=== PATIENT | male | born 1965 | race Caucasian/White ===

== ENCOUNTER 2016-09-10 13:57 | Inpatient (IN) | payer OTHER ==
--- NOTE | ~2016-09-10 | HP ---
Unit #: [id number] #: [id number] Patient: TAI SULTANA [id number] [place] [address] [id number] I MR#: [id number] NAME: TAI SULTANA ROOM: 32 Age: 51 Sex: M Admission Date: 09/10/2016 : 1965 Attending Physician: Jaya Rey M.D. Admitting Physician: Jaya Rey M.D. Primary Care Physician: Primary Care Physician No HISTORY AND PHYSICAL HISTORY OF PRESENT ILLNESS Tai is a 51 year old admitted to [address] [place] [address] with depression and verbalizing wanting to hurt himself. PAST MEDICAL HISTORY 1. Obesity. 2. High blood pressure. 3. Diabetes mellitus. 4. Hyperlipidemia. 5. Coronary artery disease. PAST SURGICAL HISTORY 1. Low back x3. 2. Cholecystectomy. 3. Appendectomy. 4. T and A. 5. Right inguinal hernia repair. 6. Left knee. ALLERGIES Sulfa, Imdur, Haldol, lithium, Reglan. SOCIAL HISTORY He does not smoke. Drinks alcohol on occasion and denies illicit drug use. FAMILY HISTORY Medically noncontributory. REVIEW OF SYSTEMS CONSTITUTIONAL: No fever or chills. HEENT: Denies any sore throat, ear pain or runny nose. CARDIOVASCULAR: Denies chest pain, irregular heart rhythm or palpitations. CHEST: Denies shortness of breath or cough. No hemoptysis. GASTROINTESTINAL: Denies nausea, vomiting, diarrhea or chronic constipation. ENDOCRINE: Denies history of increased thirst or urination. No recent significant weight loss or gain. GENITOURINARY: Denies dysuria, frequency, or hematuria. SKIN: Denies any rashes. HEMATOLOGIC: Denies history of increased bleeding or bruising. MUSCULOSKELETAL: Denies any hot, swollen joints. No generalized muscle pain. NEUROLOGIC: Denies problems with vision or speech. No frequent, severe Unit #: [id number] #: [id number] Patient: TAI SULTANA headaches. No numbness, tingling or weakness in any extremities. Denies loss of bladder or bowel control. CURRENT MEDICATIONS 1. Invega 9 mg q.h.s. 2. Melatonin 6 mg q.h.s. 3. Lipitor 80 mg q.h.s. 4. Lexapro 20 mg q.h.s. 5. Seroquel XR 300 mg q.h.s. 6. Protonix 40 mg b.i.d. 7. Lopressor 50 mg b.i.d. 8. Milk of Magnesia p.r.n. 9. Maalox p.r.n. 10. Tylenol p.r.n. 11. Ferrous gluconate 324 mg daily. 12. Nitroglycerin sublingually p.r.n. 13. Glucophage 500 mg b.i.d. 14. Aspirin 81 mg daily. 15. Claritin 10 mg daily. 16. Norvasc 5 mg daily. 17. Zestril 20 mg daily. PHYSICAL EXAMINATION GENERAL: Alert, obese, in no apparent distress. VITAL SIGNS: Blood pressure 136/82, heart rate 86, respirations 16, temperature 98.6. WEIGHT: 275. HEIGHT: 5 feet 11 inches. SKIN: Warm and dry without rash or lesion. HEENT: Normocephalic. TMs not viewed. Oral and nasal passages clear. Conjunctivae clear. PERRLA. EOMs intact. NECK: Supple without lymphadenopathy or thyromegaly. HEART: Regular rate and rhythm without murmur. LUNGS: Clear. ABDOMEN: Soft, nontender. : Not done. EXTREMITIES: No evidence of cyanosis, clubbing or edema. Moves all without focal deficit. NEUROLOGICAL: Grossly within normal limits. Cranial Nerves: II: Visual trujillo are intact. III, IV AND : Extraocular movements are intact. Pupils are equal, round and reactive to light. V: Facial sensation is grossly normal. VII: Facial movements and expression are normal. VIII: Auditory acuity grossly intact. IX, X: Uvula is midline. Phonation is normal. XI: Patient shrugs shoulders and turns head normally. XII: Tongue protrudes in the midline. Sensory and Motor Function: Sensory and motor sensation is grossly normal. Motor: moves all extremities well. Coordination: Gait is normal. Deep Tendon Reflexes: Intact. IMPRESSION Psychiatric admission. RECOMMENDATIONS PSYCHIATRIC: Per psychiatrist. MEDICAL: See no contraindications to participate in facility's activities. Unit #: [id number] #: [id number] Patient: TAI SULTANA MEDICAL PROGNOSIS Good. MEDICAL CONDITION Stable. Dictated by... Sandy Garcia P.A.-C. for Ro Salgado/gretchen TD: 09/11/2016 17:32 JOB #: [id number] HISTORY AND PHYSICAL Page 1 of 1 X Sandy Garcia HISTORY AND PHYSICAL
--- NOTE | ~2016-09-10 | DS ---
Unit #: [id number] #: [id number] Patient: EMELI SULTANA [id number] [place] [address] [id number] I MR#: [id number] NAME: EMELI SULTANA ROOM: [facility] Age: 51 Sex: M Admission Date: 09/10/2016 : 1965 Discharge Date: 09/17/2016 Attending Physician: Jaya Rey M.D. Primary Care Physician: Primary Care Physician No DISCHARGE SUMMARY REASON FOR ADMISSION The patient is a 51-year-old white male, admitted with worsening symptoms of psychosis and command hallucinations. HOSPITAL COURSE The patient was admitted to the [address] [place] [address] unit and continued on previously prescribed medications. The patient's dose of Invega was gradually increased from 6 to 12 mg at h.s. and the patient tolerated the increase with no extrapyramidal symptoms or other complaint. With the increased dose of Invega to 12 mg, the patient reported reduction in command hallucinations and was much brighter when seen by this physician on 09/16/2016. At that point, he requested discharge from the hospital, it was so ordered. The patient will be given a supply of p.r.n. Symmetrel to take should he develop any extrapyramidal symptoms with the increased dose of Invega as he is fearful could happen. FINAL DIAGNOSES Schizoaffective disorder, diabetes mellitus, hypertension, dyslipidemia, coronary artery disease, gastroesophageal reflux disease, iron-deficiency anemia, environmental allergies. DISPOSITION ON DISCHARGE The patient discharged on following medications; Symmetrel 100 mg b.i.d. p.r.n. stiffness, haloperidol 12 mg at bedtime for psychosis, Flexeril 10 mg t.i.d. for muscle relaxation, Motrin 600 mg q.6 hours p.r.n. pain, Aristocort 0.1% cream apply to affected areas b.i.d. for rash, Ambien 5 mg at h.s. p.r.n. insomnia, aspirin 81 mg daily for anticoagulation, Claritin 10 mg daily for environmental allergies, Fergon 324 mg t.i.d. for iron supplementation, Protonix 40 mg daily for GERD, Norvasc 5 mg once daily for hypertension, Nitrostat 0.4 mg p.r.n. chest pain, Lipitor 80 mg at bedtime for dyslipidemia, Zestril 20 mg daily for hypertension, Lopressor 50 mg b.i.d. for hypertension, Glucophage 500 mg b.i.d. before meals for diabetic management, Lexapro 20 mg daily for depression, Seroquel XR 300 mg at bedtime for mood stabilization. Justification for 2 antipsychotics, the patient has been stabilized as an outpatient through [facility] in [place], [place] on 2 antipsychotic medications and these were continued with upper titration of Invega being the only therapeutic change. FOLLOWUP The patient will follow up through the auspices of [facility] in the [place], [place] area. PROGNOSIS Unit #: [id number] #: [id number] Patient: EMELI SULTANA His prognosis is considered good. Dictated by... Jaya Rey M.D. VIMAL/jung TD: 09/16/2016 23:00 JOB #: [id number] DISCHARGE SUMMARY Page 1 of 1 X Jaya Rey MD X DISCHARGE SUMMARY
--- NOTE | ~2016-09-10 | PN ---
Unit #: [id number] #: [id number] Patient: EMELI SULTANA [id number] [facility] [address] [place] [address] [id number] I MR#: [id number] NAME: EMELI SULTANA ROOM: 32 Age: 51 Sex: M Admission Date: 09/10/2016 : 1965 Attending Physician: Jaya Rey M.D. Admitting Physician: Jaya Rey M.D. Primary Care Physician: Primary Care Physician Nighat GARVIN PROGRESS NOTES DATE 09/15/2016 DISCUSSION The patient continues to complain of command auditory hallucinations which are instructing him to take an overdose of pills. He is agreeable with a plan for increasing his Invega dose to address his ongoing psychosis. Dictated by... Jaya Rey M.D. CB/linda TD: 09/15/2016 21:54 JOB #: [id number] PEAT[facility]Y PROGRESS NOTES Page 1 of 1 X Jaya Rey MD PROGRESS NOTE
--- NOTE | ~2016-09-10 | CO ---
Unit #: [id number] #: [id number] Patient: TAI SULTANA [id number] [place] [address] [id number] I MR#: [id number] NAME: TAI SULTANA ROOM: 32 Age: 51 Sex: M Admission Date: 09/10/2016 : 1965 Attending Physician: Jaya Rey M.D. Primary Care Physician: Primary Care Physician No Consultation Date: 09/10/2016 CONSULTATION REPORT HISTORY OF PRESENT ILLNESS Tai reports a history of 2 diskectomies and one lumbar fusion, and has chronic back pain. It has been worse since admission he believes most likely due to the bed and the chair that he is sitting in. He has taken Tylenol, which has not helped. He was recently prescribed ibuprofen (1) . He has taken Flexeril in the past and has had good results from that; however, he reports that a few weeks ago he did overdose on Flexeril. No other complaints. PHYSICAL EXAMINATION CARDIAC: Regular rate and rhythm. No murmurs, gallops, or rubs. RESPIRATORY: Clear to auscultation bilaterally. MUSCULOSKELETAL: Full range of motion in all extremities. Normal ambulation. ASSESSMENT AND PLAN Back pain. We will begin Flexeril 10 mg p.o. q.8 hours p.r.n. back pain. He has not been taking his home Flexeril prescription. Dictated by... Melissa No A.P.R.N. for Ro Salgado/jung TD: 09/15/2016 01:11 JOB #: [id number] CONSULTATION REPORT Page 1 of 1 X MELISSA CASAS APRN CONSULTATION REPORT
--- NOTE | ~2016-09-10 | PN ---
Unit #: [id number] #: [id number] Patient: EMELI SULTANA [id number] [facility] [address] [place] [address] [id number] I MR#: [id number] NAME: EMELI SULTANA ROOM: 32 Age: 51 Sex: M Admission Date: 09/10/2016 : 1965 Attending Physician: Jaya Rey M.D. Admitting Physician: Jaya Rey M.D. Primary Care Physician: Primary Care Physician Nighat GARVIN PROGRESS NOTES DATE 09/13/2016 DISCUSSION The patient is active within the therapeutic milieu, watching a movie in the day room with other (1) __ peers. He does continue to endorse positive auditory hallucinations and is concerned that his face maybe starting to "tighten up," i.e., extrapyramidal symptoms with increased Invega. We may need to consider addition of Symmetrel as the patient reports that he is intolerant of the drying effects of anticholinergic medications. Dictated by... Jaya Rey M.D. CB/nusrat TD: 09/13/2016 13:07 JOB #: [id number] BHARATHI PROGRESS NOTES Page 1 of 1 X Jaya eRy MD PROGRESS NOTE
--- NOTE | ~2016-09-10 | PN ---
Unit #: [id number] #: [id number] Patient: EMELI SULTANA [id number] [facility] [address] [place] [address] [id number] I MR#: [id number] NAME: EMELI SULTANA ROOM: 32 Age: 51 Sex: M Admission Date: 09/10/2016 : 1965 Attending Physician: Jaya Rey M.D. Admitting Physician: Jaya Rey M.D. Primary Care Physician: Primary Care Physician Nighat GARVIN PROGRESS NOTES DATE 09/14/2016 DISCUSSION The patient continues to complain of auditory hallucinations. His sleep has improved and he seems a bit brighter though he remains seclusive to room we continue current treatment and I did not look to increase the patient's Invega further at least for the next couple of days given the patient's history of intolerance of side effects from this medication specifically extrapyramidal side effects. Dictated by... Jaya Rey M.D. CB/linda TD: 09/15/2016 02:22 JOB #: [id number] BHARATHI PROGRESS NOTES Page 1 of 1 X Jaya Rey MD PROGRESS NOTE
--- NOTE | ~2016-09-10 | PA ---
Unit #: [id number] #: [id number] Patient: EMELI SULTANA [id number] [facility] [address] [place] [address] [id number] I MR#: [id number] NAME: EMELI SULTNAA ROOM: 32 Age: 51 Sex: M Admission Date: 09/10/2016 : 1965 Date of Assessment: 09/11/2016 Attending Physician: Jaya Rey M.D. Admitting Physician: Jaya Rey M.D. Primary Care Physician: Primary Care Physician No PSYCHIATRIC ASSESSMENT IDENTIFYING INFORMATION The patient is a 51-year-old male admitted to the [facility] with worsening symptoms of auditory hallucinations. CHIEF COMPLAINT None given. INFORMANT(S) Patient, reliability is good. HISTORY OF PRESENT ILLNESS The patient is a 51-year-old white male who carries a diagnosis of schizoaffective disorder. He has followed through the auspices of [facility] in [place], [place], and is currently prescribed Seroquel, Invega, and escitalopram. The patient reports recent worsening of auditory hallucinations. He traces this to the recent Mother's Day holiday and had to spent time with his daughter and ex- as well as related to memories of his mother who 3 years ago. The patient currently reports positive auditory hallucinations which he states are worse when his mind is idle. He also reports that they are of command type and are causing increased suicidal thinking. The patient reports that increasing his dose of Seroquel makes him intolerably sleepy. He has also concern that increasing (1) __ may cause extrapyramidal symptoms. PAST PSYCHIATRIC HISTORY The patient is chronically psychiatrically ill and disabled by his psychiatric illness. He does have a history of multiple previous psychiatric hospitalizations in the past and is followed through the auspices of community mental health resources in the [facility] area. PAST MEDICAL HISTORY The patient suffers from diabetes mellitus, hypertension, and dyslipidemia. MEDICATIONS Aspirin, cetirizine, amlodipine, nitroglycerin, Protonix, ferrous sulfate, atorvastatin, lisinopril, multivitamin, sucralfate, metoprolol, metformin, Lexapro, Invega, Seroquel XR. ALLERGIES Sulfa, lithium, Reglan, Haldol, and Imdur. FAMILY HISTORY Unit #: [id number] #: [id number] Patient: EMELI SULTANA Noncontributory. SOCIAL HISTORY The patient is originally from [place]. 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 The patient reports no use of psychoactive substances. MENTAL STATUS EXAMINATION Examination at this time reveals the patient to be a well-developed well-nourished white male appearing stated age. He is in no apparent physical distress at the time of the examination. He is awake, alert, and oriented in all spheres. His mood is mildly dysphoric, his affect constricted and strange. Speech is generally well-coherent. There are no gross deficits in memory or cognition noted. Intelligence is judged to be in the average range based on fund of knowledge. The patient is cooperative throughout the interview. He is currently endorsing positive suicidal ideation. He denies homicidal ideation. He reports positive auditory hallucinations. His judgment and insight appear to be mildly impaired. ASSETS AND LIABILITIES The patient's assets: motivation for change. Liabilities: Chronicity and severity of illness. DIAGNOSTIC IMPRESSION 1. Schizoaffective disorder. 2. Coronary artery disease. 3. Hypertension. 4. Dyslipidemia. 5. Diabetes mellitus. TREATMENT PLAN The patient remains hospitalized for safety and stabilization. We will increase the patient's Invega to 9 mg daily and watch for any signs. Should he develop any extrapyramidal symptoms, we will consider initiation of Symmetrel or Artane. ESTIMATED LENGTH OF STAY 5 to 7 days. The followup will take place through the auspices of community mental health resources in the [facility]. Dictated by... Jaya Rey M.D. Linh TD: 09/11/2016 14:54 JOB #: [id number] Unit #: [id number] #: [id number] Patient: EMELI SULTANA PSYCHIATRIC ASSESSMENT Page 1 of 1 X Jaya Rey MD X PSYCHIATRIC ASSESSMENT
== END 2016-09-17 09:45 | disposition home or self-care (01) | DRG 885 ==
LOC: P1S 17:15
DX: F25.9 Schizoaffective disorder, unspecified (principal); R45.851 Suicidal ideations; E11.9 Type 2 diabetes mellitus without complications; I10 Essential (primary) hypertension; E78.5 Hyperlipidemia, unspecified; D50.9 Iron deficiency anemia, unspecified; I25.10 Atherosclerotic heart disease of native coronary artery without angina pectoris; Z88.8 Allergy status to other drugs, medicaments and biological substances; Z88.2 Allergy status to sulfonamides; Z79.84 Long term (current) use of oral hypoglycemic drugs; E66.9 Obesity, unspecified; Z90.49 Acquired absence of other specified parts of digestive tract; G89.29 Other chronic pain; M54.9 Dorsalgia, unspecified; K21.9 Gastro-esophageal reflux disease without esophagitis; Z68.38 Body mass index [BMI] 38.0-38.9, adult